=== PATIENT | female | born 1980 | race Asian ===

== ENCOUNTER 2020-03-27 14:13 | Emergency (ER) | payer OTHER ==
[~2020-03-27] VITALS: Ht 162.6 cm; Wt 74.8 kg
[2020-03-27 14:27] VITALS: BP 164/101
== END 2020-03-27 14:55 | disposition home or self-care (01) ==
LOC: ER 14:18
DX: Z03.818 Encounter for observation for suspected exposure to other biological agents ruled out (principal)
CPT/HCPCS: 99283; C9803; U0003

== ENCOUNTER 2020-07-26 10:13 | Emergency (ER) | payer OTHER ==
[~2020-07-26] VITALS: Ht 152.4 cm; Wt 61.2 kg
[2020-07-26 10:20] VITALS: BP 130/78
--- NOTE | 2020-07-26 10:45 | NUR ---
covid swab sent. Patient discharged to home in stable condition. Written and verbal after care instructions given. Patient verbalizes understanding of instruction.
== END 2020-07-26 10:46 | disposition home or self-care (01) ==
LOC: ER 10:14
DX: Z20.828 Contact with and (suspected) exposure to other viral communicable diseases (principal); I10 Essential (primary) hypertension
CPT/HCPCS: 99283; C9803; U0003

== ENCOUNTER 2022-10-13 14:30 | Emergency (ER) | payer BC, OTHER ==
[~2022-10-13] VITALS: Ht 152.4 cm; Wt 70.3 kg
--- NOTE | 2022-10-13 14:45 | NUR ---
"Right Lower extremity discomfort. Worse last night"
--- NOTE | 2022-10-13 16:17 | NUR ---
Patient discharged to home in stable condition. Written and verbal after care instructions given. Patient verbalizes understanding of instruction.
[2022-10-13 16:19] VITALS: BP 131/79
== END 2022-10-13 16:19 | disposition home or self-care (01) ==
LOC: ER 14:36
DX: R60.0 Localized edema (principal); I10 Essential (primary) hypertension
CPT/HCPCS: 84703-TC; 93971-TC